=== PATIENT | female | born 1990 | race Caucasian/White ===

== ENCOUNTER → 2019-07-12 | Outpatient (CLI) | payer OTHER ==
--- NOTE | 2019-07-12 10:27 | CARD ---
MR#: [id number] Date of Study: 07/12/2019 Ordering Physician: AMBER MCCRARY, Referring Physician: AMBER MCCRARY, Tech: Natasha Trammell APPROVED REPORT EXAM: Two-dimensional and M-mode echocardiogram with Doppler and color Doppler. Other Information Quality : GoodHR: 92bpm INDICATION Palpitations RISK FACTORS Smoking 2D DIMENSIONS RVDd2.5 (2.9-3.5cm)Left Atrium(2D)3.2 (1.6-4.0cm) IVSd0.9 (0.7-1.1cm)Aortic Root(2D)3.1 (2.0-3.7cm) LVDd4.9 (3.9-5.9cm)LVOT Diameter2.2 (1.8-2.4cm) PWd0.8 (0.7-1.1cm)LVDs4.0 (2.5-4.0cm) FS (%) 18.0 %SV42.6 ml LVEF(%)37.2 (>50%) Aortic Valve AoV Peak Johnny.119.0cm/sAoV VTI23.1cm AO Peak GR.5.7mmHgLVOT Peak Johnny.94.9cm/s LVOT VTI 17.82cmAO Mean GR.3mmHg KATHY (VMAX)2.57jo5VFH (VTI)3.03cm2 Mitral Valve MV E Cxohsble23.2cm/sMV DECEL VARV432rv MV A Hxywuqzj16.4cm/sMV ITC59iq E/A Ratio1.5MVA (PHT)4.99cm2 TDI E/Lateral E'4.7E/Medial E'7.4 Pulmonary Valve PV Peak Cjjrmifi60.6cm/sPV Peak Grad.2mmHg Tricuspid Valve TR P. Zlbkhgqa977fm/sRAP [id number] TR Peak Gr.63ebJyOXDP20quVq Pulmonary Vein S1 Avtmzmmi09.3cm/sD2 Bfbobnlf27.3cm/s LEFT VENTRICLE The left ventricle is normal size. There is normal left ventricular wall thickness. The left ventricu lar systolic function is low normal. The Ejection Fraction is 50%. There is normal LV segmental wall motion. The left ventricular diastolic function and filling is normal for age. RIGHT VENTRICLE The right ventricle is normal size. There is normal right ventricular wall thickness. The right ventr icular systolic function is normal. ATRIA The left atrium size is normal. The right atrium size is normal. The interatrial septum is intact wit h no evidence for an atrial septal defect or patent foramen ovale as noted on 2-D or Doppler imaging. AORTIC VALVE The aortic valve is normal in structure and function. Doppler and Color Flow revealed no significant aortic regurgitation. There is no significant aortic valvular stenosis. MITRAL VALVE The mitral valve is normal in structure and function. There is no evidence of mitral valve prolapse. There is no mitral valve stenosis. Doppler and Color-flow revealed trace mitral regurgitation. TRICUSPID VALVE The tricuspid valve is normal in structure and function. Doppler and Color Flow revealed trace tricus pid regurgitation with an estimated PAP of 21 mmHg. There is no tricuspid valve stenosis. PULMONIC VALVE Doppler and Color Flow revealed trace pulmonic valvular regurgitation. There is no pulmonic valvular stenosis. GREAT VESSELS The aortic root is normal in size. The ascending aorta is normal in size. The IVC is normal in size a nd collapses >50% with inspiration. PERICARDIAL EFFUSION There is no evidence of significant pericardial effusion. Critical Notification Critical Value: No <Conclusion> The left ventricular systolic function is low normal. The Ejection Fraction is 50%. There is normal LV segmental wall motion. Signed by : Amber Mccrary, Electronically Approved : 07/12/2019 10:27:09
== END ==
LOC: ECHO 07:48
PROVIDERS: ATTEND Internal Medicine Cardiovascular Disease
DX: R00.2 Palpitations (principal)
CPT/HCPCS: 93306